=== PATIENT | female | born 1955 | race African-American/Black ===

== ENCOUNTER → 2021-05-27 | Outpatient (CLI) | payer OTHER | LOC: RAD 10:05 | PROVIDERS: ATTEND Orthopaedic Surgery | DX: M51.34 Other intervertebral disc degeneration, thoracic region (principal); M41.84 Other forms of scoliosis, thoracic region; M25.78 Osteophyte, vertebrae; M41.86 Other forms of scoliosis, lumbar region; M46.96 Unspecified inflammatory spondylopathy, lumbar region; M06.9 Rheumatoid arthritis, unspecified ==

== ENCOUNTER → 2021-07-04 | Outpatient (CLI) | payer OTHER | LOC: RAD 11:43 | PROVIDERS: ATTEND Nurse Practitioner Family | DX: M17.0 Bilateral primary osteoarthritis of knee (principal); M16.12 Unilateral primary osteoarthritis, left hip; M25.752 Osteophyte, left hip; M11.262 Other chondrocalcinosis, left knee; M11.261 Other chondrocalcinosis, right knee; M79.89 Other specified soft tissue disorders; M19.011 Primary osteoarthritis, right shoulder; M19.012 Primary osteoarthritis, left shoulder ==